=== PATIENT | male | born 1985 | race Caucasian/White ===

== ENCOUNTER 2016-11-22 08:07 | Inpatient (IN) | payer OTHER ==
[~2016-11-22] VITALS: Ht 165.1 cm; Wt 54.4 kg
[2016-11-22] MEDS ORDERED: TRAZ-144 PO (10:21)
[2016-11-22] MEDS ORDERED: SERT100T PO (10:21)
[2016-11-22] MEDS ORDERED: CLON0.5T PO (10:21)
[2016-11-22 10:38] VITALS: BP 151/93
[2016-11-22 11:08] LABS: *AMPHETAMINE, URINE NEGATIVE (NEGATIVE); *BARBITURATE, URINE NEGATIVE (NEGATIVE); *CANNABINOID, URINE NEGATIVE (NEGATIVE); *COCCAINE, URINE NEGATIVE (NEGATIVE); *OPIATE, URINE NEGATIVE (NEGATIVE); *PHENCYCLIDINE SCREEN,URINE NEGATIVE (NEGATIVE)
--- NOTE | 2016-11-22 11:30 | NUR ---
ADMISSION Admitted a 31 year old male from [facility]. Patient was assessed for pre admission at intake office at 1008, vital signs obtained: bp: 151/93, hr: 108, t: 97.8 r: 16, o2 sat: 99% room air. Patient noted with flushed face and hyperverbal, reporting he feels anxious. Patient provided with calming reassurance and non pharmacological intervention with relief. Patient provided urine for admitting urine drug screen. Patient reports he is here to detox off of etoh/Roxicodone/ Klonopin. Patient arrived to [facility] at 1030. Patient oriented to unit and to room educated regarding call light use. Body search completed by male intake staff, no contraband found. Patients body assessment completed by staff nurse, patient skin is intact, no breakdown, bruising or discoloration noted, patient has multiple tattoos on chest and on bilateral arms. Patient is 5 feet 5 inches tall and weighs 120 lbs. Patient reports substance use of: 1. etoh- began drinking alcohol at the age of 17 for the past month has been drinking 750ml of whiskey daily, last drink 11/22/2016 in the morning consumed 750ml of whiskey. 2. Roxicodone- began using 3 years ago after a dental procedure for the past month has been snorting intranasally 3-4 pills of unknown amount last used 11/21/2016 in the morning unknown amount. 3. heroin- began using 3 years ago, per patient the last 3 years uses once every couple of months 1 gram intranasally, reports last used 2 weeks ago 1 gram. 4. Klonopin-began using at the age of 20, Per patient for the past 3 weeks he has been taking 3 pills of 0.5mg each daily for one week, last took 11/01/2016, per patient he had a prescription for it, but ran out of Klonopin. Patient with longest period of sobriety was for one month, July 2016. Reports treatment history of two treatment centers: [facility] for 30 days at the age of 23, and [facility] treatment in [place] for 2 weeks in July 2016. Reports he does not have a primary care physician, but does have a psychiatrist. Dr. Harmon in [place], [place] at [facility]. Patient reports allergies to penicillin. Patient reports he was diagnosed with depression at the age of 17 and ADHD at the age of 17. Takes the following home medications: Zoloft 100mg Po daily, trazodone 50mg Po QHSPRN, Klonopin 0.5mg PO daily. Patient denies any history of seizures. Reports family history of substance abuse: mother was a crack addict but has been sober for sometime now. Patient reports his father was an alcoholic Patient denies any history of seizures. Patient reports he attempted suicide at the age of 18 when he took a bunch of sleeping pills patient currently denies any thoughts/plan of SI. Dr. Orosco notified of new admission. Dr. Yates notified of new admission and will input orders. Patient currently in room, pupils are equal and reactive to light, 3mm. Patients abdomen is soft and non distended. Bowel sounds heard in all quadrants. Patients respirations are even and unlabored, lungs clear upon auscultation. Admitting cow score of: 5 and ciwa score of: 3, presenting with: difficulty sitting still, anxiety, heart rate of 108. Safety measures in place. Call light kept with in reach. Will continue to monitor closely.
[2016-11-22 13:02] VITALS: BP 122/85
[2016-11-22] MEDS ORDERED: MAG HYDROX/AL HYDROX/SIMETH 30 ML LIQUID UDC PO PRN (15:00)
[2016-11-22] MEDS ORDERED: diphenhydrAMINE 50 MG CAPSULE PO PRN (15:00)
[2016-11-22] MEDS ORDERED: ONDANSETRON ODT 4 MG TAB.RAPDIS SL PRN (15:00)
[2016-11-22] MEDS ORDERED: LORAZEPAM 2 MG/1 ML VIAL IM PRN (15:00)
[2016-11-22] MEDS ORDERED: LOPERAMIDE HCL 2 MG CAPSULE PO PRN ×2 (15:00)
[2016-11-22] MEDS ORDERED: MIRALAX 17 GM POWD.PACK PO PRN (15:00)
[2016-11-22] MEDS ORDERED: THIAMINE HCL 200 MG/2 ML VIAL IM ONE (15:00)
[2016-11-22] MEDS ORDERED: ONDANSETRON 4 MG/2 ML VIAL IM PRN (15:00)
[2016-11-22] MEDS ORDERED: LORAZEPAM 1 MG TABLET PO PRN (15:00)
[2016-11-22] MEDS ORDERED: CLONIDINE HCL 0.1 MG TABLET PO PRN (15:00)
[2016-11-22] MEDS ORDERED: DICYCLOMINE HCL 20 MG TABLET PO PRN (15:00)
[2016-11-22] MEDS ORDERED: BUPRENORPHINE HCL 2 MG TAB.SUBL SL PRN (15:00)
[2016-11-22] MEDS ORDERED: ACETAMINOPHEN 325 MG TABLET PO PRN (15:00)
[2016-11-22] MEDS: GABAPENTIN 300 MG CAPSULE PO SCH ×2 (15:36→21:08)
[2016-11-22] MEDS: BUPRENORPHINE HCL 2 MG TAB.SUBL SL SCH ×2 (15:36→21:09)
[2016-11-22] MEDS: LORAZEPAM 1 MG TABLET PO PRN ×2 (15:44→17:14)
--- NOTE | 2016-11-22 15:44 | NUR ---
PRN ATIVAN Patient presenting with: moderate headache, anxiety, observable moist, and fine tremors with ciwa score of: 13, as per MD orders patient was administered 1 mg Ativan Po as ordered, will monitor effectiveness of medication.
--- NOTE | 2016-11-22 16:36 | NUR ---
MD COMMUNICATION/ATIVAN CLARIFICATION Patient with new orders to begin Ativan taper, first dose to be administered at 1700 d/t patient received 1 mg Ativan Po at 1544 per MD orders hold first dose of taper Ativan 2 mg Po and administer an additional 1mg Ativan Po dose. Verified and read back to MD, will administer as ordered. will continue to monitor closely.
--- NOTE | 2016-11-22 16:44 | NUR ---
ATIVAN REASSESSMENT Patient continues to present with: presenting with: mild headache, anxiety, observable moist, and fine tremors with ciwa score of: 11, will administer an additional 1 mg Po Ativan dose as per Dr. Yates and will hold first dose of taper (Ativan 2 mg Po) as per Dr. Yates, will continue to monitor closely.
[2016-11-22] MEDS: LORAZEPAM 1 MG TABLET PO SCH ×2 (17:00→21:08)
[2016-11-22 17:30] VITALS: BP 137/99
--- NOTE | 2016-11-22 19:00 | NUR ---
END OF SHIFT Patient alert and oriented x4, patient compliant with therapeutic plan of care, was started on a 5 day Ativan and 5 day Subutex taper. Administered Subutex and Ativan during shift, as ordered by Dr. Yates, well tolerated, no ASE noted. Encouraged adequate PO fluid intake as tolerated. Patient encouraged to attend group therapies/sessions to learn new coping skills to prevent relapse. vital signs stable. Patient endorsed to research program intern nurse, all pertinent information discussed with patient.
--- NOTE | 2016-11-22 19:30 | NUR ---
START OF SHIFT-- Pt is a 31 y/o male admitted today for ETOH/OPIATE /BENZO dependency. Allergic to PCN, on regular diet, full code status.He is A/O X 4.PMH of ADHD and depression.Pt has been seen by MD and started on 5 day dual taper of Ativan and Subutex,well tolerated; NO A/R reported by day shift nurse.Skin is intact. Encouraged adequate PO fluid intake as tolerated. Patient encouraged to attend group therapies/sessions ; vital signs stable,bed locked in lowest position,side rails up x 2,call light within reach. Patient received in a stable condition;will be monitored for safety.
[2016-11-22 20:00] VITALS: BP 140/93
[2016-11-22] MEDS ORDERED: LORAZEPAM 1 MG TABLET PO SCH (21:00)
[2016-11-22] MEDS ORDERED: QUETIAPINE FUMARATE 25 MG TABLET PO SCH (21:00)
[2016-11-22 21:49] LABS: ALBUMIN 3.9 g/dL (3.4-5.0); BILIRUBIN,TOTAL 0.4 mg/dL (0.2-1.0); CALCIUM 9.5 mg/dL (8.5-10.1); CREATININE 0.9 mg/dL (0.6-1.3); MAGNESIUM 1.8 mg/dL (1.8-2.4); POTASSIUM 3.7 mmol/L (3.5-5.1); TOTAL PROTEIN, SERUM 7.8 g/dL (6.4-8.2)
[2016-11-22 21:58] LABS: BASOPHILS # (AUTO) 0.1 K/uL (0.0-8.0); BASOPHILS % (AUTO) 0.4 % (0.0-2.0); EOSINOPHILS % (AUTO) 0.3 % (0.0-7.0); HEMATOCRIT 48.2 % (36.7-47.1); HEMOGLOBIN 16.9 g/dL (12.5-16.3); LYMPHOCYTES # (AUTO) 2.6 K/uL (20.0-40.0); LYMPHOCYTES % (AUTO) 16.9 % (20.5-51.5); MEAN CORPUSCULAR HEMOGLOBIN 31.8 uug (23.8-33.4); MEAN CORPUSCULAR HGB CONC 35 g/dL (32.5-36.3); MEAN CORPUSCULAR VOLUME 90.7 fL (73.0-96.2); MONOCYTES # (AUTO) 0.8 K/uL (2.0-10.0); MONOCYTES % (AUTO) 5.3 % (0.0-11.0); NEUTROPHILS # (AUTO) 12.1 K/uL (1.8-8.9); NEUTROPHILS % (AUTO) 77.1 % (38.5-71.5); PLATELET COUNT (AUTO) 266 K/uL (152-348); RED BLOOD CELL COUNT(AUTO) 5.32 MIL/uL (4.06-5.63); RED CELL DISTRIBUTION WIDTH 12.3 % (12.1-16.2); WHITE BLOOD COUNT (AUTO) 15.6 K/uL (3.6-10.2)
--- NOTE | 2016-11-22 22:00 | NUR ---
REJI Faulkner, Robaxin, and Milk of Magnesia reassessment Pt reports relief of headache and body aches. He has not had a BM yet. Addendum: 11/24/16 at 0242 by TERRI MONROE RN Incorrect date of note.
[2016-11-22 22:02] LABS: THYROID STIMULATING HORMONE 1.239 mIU/mL (0.358-3.740)
[2016-11-22 22:07] LABS: HIV-1 p24 ANTIGEN NON REACTIVE (NONREACTIVE); HIV-1/2 ANTIBODY NON REACTIVE (NONREACTIVE)
[2016-11-23] VITALS (8 sets, daily range): BP systolic 142–172; BP diastolic 92–120
--- NOTE | 2016-11-23 06:44 | NUR ---
END OF SHIFT-- Pt is a 31 y/o male admitted for ETOH/OPIATE /BENZO dependency. Allergic to PCN, on regular diet, full code status.He is A/O X 4.PMH of ADHD and depression.Pt has been seen by MD and started on 5 day dual taper of Ativan and Subutex,well tolerated; NO A/R reported by day shift nurse.Skin is intact. Encouraged adequate PO fluid intake as tolerated. vital signs stable,bed locked in lowest position,side rails up x 2,call light within reach.No PRN meds given last night;Pt slept 7 hrs,fluid intake was 1021 mls,voided x 3. Patient is in a stable condition;will endorse care to day shift.
[2016-11-23] MEDS ORDERED: SERTRALINE HCL 100 MG TABLET PO SCH (09:00)
[2016-11-23] MEDS ORDERED: TUBERCULIN,PURIF.PROT.DERIV. 5 TU/0.1 ML TEST ID ONE (09:00)
[2016-11-23] MEDS: LORAZEPAM 1 MG TABLET PO SCH ×4 (09:02→20:47)
[2016-11-23] MEDS: BUPRENORPHINE HCL 2 MG TAB.SUBL SL SCH ×4 (09:02→20:48)
[2016-11-23] MEDS: MULTIVITAMINS,THERAPEUTIC TABLET PO SCH (09:02)
[2016-11-23] MEDS: METHOCARBAMOL 750 MG TABLET PO PRN ×2 (09:02→20:48)
[2016-11-23] MEDS: FOLIC ACID 1 MG TABLET PO SCH (09:02)
[2016-11-23] MEDS: THIAMINE HCL 100 MG TABLET PO SCH (09:02)
[2016-11-23] MEDS: GABAPENTIN 300 MG CAPSULE PO SCH ×2 (09:02→14:28)
--- NOTE | 2016-11-23 09:02 | NUR ---
PRN Robaxin 750mg Client reports generalized muscle pain 8/10, manifested by irritability and change in vitals. Robaxin 750mg PO administered. Call light within reach.
--- NOTE | 2016-11-23 09:07 | NUR ---
TB TEST TO L F/A Client tolerated well.
--- NOTE | 2016-11-23 10:02 | NUR ---
Reassessment PRN Robaxin 750mg Client reports relief from generalized muscle pain 2/10, but tolerable.
--- NOTE | 2016-11-23 19:00 | NUR ---
END OF SHIFT: Client continues on 5 day Subutex/ 5 day Ativan taper, for management of his withdrawal symptoms. He is in room, A/O X4, reports anxiety, chills, and fatigue, he denies any N/V/D. Last COWS 10/ CIWA 10. He is compliant with group therapy. Adequate intake 1460mL void x 3, stool x 1. Client is on seizure precautions. Side rails X 2 up/padded, call light within reach, bed locked in lowest positions. Endorsed to incoming nurse
--- NOTE | 2016-11-23 20:00 | NUR ---
START OF SHIFT Received report from day shift nurse. Pt attended a group meeting and returned to his room after. He is a 31 yo male admitted to [facility] on 11/22 for ETOH, BZD, and opiate dependence. He is A&O x4 and ambulatory. Allergic to PCNs, full code status, and on a regular diet. He has a past history of depression. On admission he admitted to using ETOH 750mL per day for the past month, klonopin 1.5mg per day for the past 3 weeks, heroin 1 gram once every couple of months for 3 years, roxycodone 3-4 tabs per day for the past month. He started a 5 day Ativan and 5 day Subutex taper today. Pt is noted with observable tremors, runny nose, and goose bumps. He reports anxiety and headache. Tapers due tonight. Fall and seizure precautions in place. Bed is down with call light in reach.
[2016-11-23] MEDS: QUETIAPINE FUMARATE 100 MG TABLET PO SCH (20:48)
[2016-11-23] MEDS: IBUPROFEN 600 MG TABLET PO PRN (20:48)
--- NOTE | 2016-11-23 20:50 | NUR ---
PRN Motrin, Robaxin, and Milk of Magnesia administration Pt c/o generalized body aches, headache, and one BM over the past two weeks. He also reports poor appetite prior to admission. Pt states, "I've gone to the bathroom one time in the past week and it was watery". PRN Motrin, Robaxin, and Milk of Magnesia administered.
[2016-11-23] MEDS: MAGNESIUM HYDROXIDE 30 ML LIQUID UDC PO PRN (20:51)
[2016-11-23] MEDS ORDERED: QUETIAPINE FUMARATE 25 MG TABLET PO SCH (21:00)
[2016-11-23] MEDS ORDERED: GABAPENTIN 300 MG CAPSULE PO SCH (21:00)
--- NOTE | 2016-11-23 22:00 | NUR ---
PRN Motrin, Robaxin, and Milk of Magnesia reassessment Pt reports relief of headache and body aches. He has not had a BM yet.
--- NOTE | 2016-11-23 22:22 | NUR ---
PRN Clonidine administration Pt is anxious and agitated. He is upset to find out that his laundry will not be available today. He has moderate tremors and is unable to sit still in bed. B/P 172/120 and HR 137. PRN Clonidine administered.
--- NOTE | 2016-11-23 23:30 | NUR ---
PRN Clonidine reassessment PRN Clonidine somewhat effective. Pt is less anxious and agitated. He is moving around less frequently. He is no longer upset about his laundry. B/P 157/110 and HR 133. Pt has been frequently smoking throughout the night. He was educated regarding refraining from smoking while B/P and HR are elevated. Pt insists on continuing to smoke. Safety measures in place.
--- NOTE | 2016-11-23 23:45 | NUR ---
ECG, One time Ativan, and One time Coreg orders Contacted Dr. Yates to reports that pts B/P is 157/110 and HR 133 after Clonidine administration. Pt has become mildly confused. He is looking in his jacket for his passport and cell phone. Pt is able to be redirected. He is A&O x3. Orders received for ECG, One time Ativan, and One time Coreg. Addendum: 11/24/16 at 0316 by TERRI MONROE RN CARMEN Arceo and SALVADOR 13
[2016-11-24] VITALS (7 sets, daily range): BP systolic 108–146; BP diastolic 77–108
[2016-11-24] MEDS ORDERED: LORAZEPAM 1 MG TABLET PO ONE
[2016-11-24] MEDS ORDERED: CARVEDILOL 12.5 MG TABLET PO ONE
--- NOTE | 2016-11-24 01:25 | NUR ---
One time Ativan and one time Coreg reassessment Ativan and Coreg somewhat effective. Pt's B/P is 146/108 and HR 130. He is unable to relax in bed for longer than a half an hour and reports, "my mind keeps spinning". Pt is up to smoke and have snacks. He continues to have some mild confusion and needs frequent reminding. He asks again about his cell phone which has already been explained. Encouraged pt to relax in bed. Safety measures in place. Addendum: 11/24/16 at 0404 by TERRI MONROE RN CARMEN Flynn and SALVADOR 9
--- NOTE | 2016-11-24 03:00 | NUR ---
Nursing Note Pt is lying in bed resting comfortably with eyes closed. Respirations even and unlabored. B/P 108/77, HR 86, RR 18, O2 sat 98%. Safety measures in place
--- NOTE | 2016-11-24 07:27 | NUR ---
END OF SHIFT Report provided to day shift nurse. Pt is lying in bed resting. He is a 31 yo male admitted to [facility] on 11/22 for ETOH, BZD, and opiate dependence. He is A&O x3 and ambulatory. Allergic to PCNs, full code status, and on a regular diet. He has a past history of depression. On admission he admitted to using ETOH 750mL per day for the past month, klonopin 1.5mg per day for the past 3 weeks, heroin 1 gram once every couple of months for 3 years, roxycodone 3-4 tabs per day for the past month. Pt started a 5 day Ativan and 5 day Subutex taper on 11/23. Pt was hypertensive, with tachycardia, periods of mild confusion, and tremors. PRN Robaxin, Motrin, MOM, Clonidine, one time Ativan, and one time Coreg administered. ECG completed per orders. Last B/P stable. He drank 2610mL and slept for 4 hours. Last COWS 4 and CIWA 5. Fall and seizure precautions in place. Bed is down with call light in reach.
--- NOTE | 2016-11-24 07:30 | NUR ---
Start Of Shift Received report from shift supervisor melting nurse. Patient alert and oriented x4, patient compliant with therapeutic plan of care, was started on a 5 day Ativan and 5 day Subutex taper. Pt full code regular diet continues on fall and seizure precautions is allergic to PCN. Encouraged adequate PO fluid intake as tolerated. Pt reported feeling tired stating that he had difficulty sleeping last night and was waking up through the night. Pt slept a total of 4 hours last night. Pt presented with mild anxiety, stuffy nose, and sweats. Last CIWA 5 and COWS 4. Pt received PRN Robaxin, MOM, Motrin, Clonide as well as onetime orders of Ativan 1mg and Coreg. Medications were effective per shift supervisor melting nurse. All safety measures in place, call light within reach, will continue to monitor and provide care.
[2016-11-24 08:01] LABS: ALBUMIN 3.4 g/dL (3.4-5.0); BILIRUBIN,DIRECT 0.1 mg/dL (0.0-0.2); BILIRUBIN,TOTAL 0.5 mg/dL (0.2-1.0); CALCIUM 9.3 mg/dL (8.5-10.1); CREATININE 0.8 mg/dL (0.6-1.3); MAGNESIUM 2.2 mg/dL (1.8-2.4); PHOSPHOROUS 4.9 mg/dL (2.5-4.9); POTASSIUM 4.2 mmol/L (3.5-5.1); TOTAL PROTEIN, SERUM 6.8 g/dL (6.4-8.2)
[2016-11-24 08:14] LABS: BASOPHILS # (AUTO) 0.1 K/uL (0.0-8.0); BASOPHILS % (AUTO) 0.7 % (0.0-2.0); EOSINOPHILS # (AUTO) 0.3 K/uL (0.0-0.7); EOSINOPHILS % (AUTO) 3.9 % (0.0-7.0); HEMATOCRIT 46.8 % (36.7-47.1); HEMOGLOBIN 15.8 g/dL (12.5-16.3); LYMPHOCYTES # (AUTO) 3.2 K/uL (20.0-40.0); LYMPHOCYTES % (AUTO) 39.8 % (20.5-51.5); MEAN CORPUSCULAR HEMOGLOBIN 30.7 uug (23.8-33.4); MEAN CORPUSCULAR HGB CONC 34 g/dL (32.5-36.3); MEAN CORPUSCULAR VOLUME 90.7 fL (73.0-96.2); MONOCYTES # (AUTO) 0.8 K/uL (2.0-10.0); MONOCYTES % (AUTO) 9.6 % (0.0-11.0); NEUTROPHILS # (AUTO) 3.6 K/uL (1.8-8.9); PLATELET COUNT (AUTO) 219 K/uL (152-348); RED BLOOD CELL COUNT(AUTO) 5.16 MIL/uL (4.06-5.63); RED CELL DISTRIBUTION WIDTH 11.8 % (12.1-16.2)
[2016-11-24] MEDS: THIAMINE HCL 100 MG TABLET PO SCH (08:54)
[2016-11-24] MEDS: GABAPENTIN 300 MG CAPSULE PO SCH ×3 (08:54→21:26)
[2016-11-24] MEDS: SERTRALINE HCL 100 MG TABLET PO SCH (08:54)
[2016-11-24] MEDS: FOLIC ACID 1 MG TABLET PO SCH (08:54)
[2016-11-24] MEDS: LORAZEPAM 1 MG TABLET PO SCH ×3 (08:54→21:26)
[2016-11-24] MEDS: MULTIVITAMINS,THERAPEUTIC TABLET PO SCH (08:54)
[2016-11-24] MEDS: BUPRENORPHINE HCL 2 MG TAB.SUBL SL SCH ×3 (08:55→21:27)
[2016-11-24] MEDS ORDERED: QUETIAPINE FUMARATE 100 MG TABLET PO SCH (09:00)
[2016-11-24 09:35] LABS: *AMPHETAMINE, URINE NEGATIVE (NEGATIVE); *BARBITURATE, URINE NEGATIVE (NEGATIVE); *CANNABINOID, URINE NEGATIVE (NEGATIVE); *COCCAINE, URINE NEGATIVE (NEGATIVE); *OPIATE, URINE NEGATIVE (NEGATIVE); *PHENCYCLIDINE SCREEN,URINE NEGATIVE (NEGATIVE)
--- NOTE | 2016-11-24 19:14 | NUR ---
End Of Shift Report given to desktop administrator. Patient alert and oriented x4, patient compliant with therapeutic plan of care, was started on a 5 day Ativan and 5 day Subutex taper. Pt full code regular diet continues on fall and seizure precautions is allergic to PCN. Patient encouraged adequate PO fluid intake as tolerated. Upon assessment patient presented with dilated pupils mild anxiety, tremors, mild anxiety and barely sweating with his last CIWA score of: 3 and last COWS 4 @1600. Detox medication effective at reducing withdrawal symptoms. Patient encouraged to attend group therapies/sessions to learn new coping skills to recent relapse, noted attending and participating, patient denies SI/HI. Pt ate all of his meals his total fluid intake was 1750ml with 2 void and 0 bowel movement ,no PRN medications were administered during shift. Safety measures in place. Call light kept within reach. Patient endorsed to desktop administrator nurse, all pertinent information discussed.
--- NOTE | 2016-11-24 19:50 | NUR ---
START OF SHIFT Received report from day shift nurse. Pt is lying in bed resting. Respirations even and unlabored. He is easily arousable to verbal stimulation. He is a 31 yo male admitted to [facility] on 11/22 for ETOH, BZD, and opiate dependence. He is A&O x4 and ambulatory. Pt is allergic to PCNs, is full code status, and on a regular diet. He has a past history of depression. On admission he admitted to using ETOH 750mL per day for the past month, klonopin 1.5mg per day for the past 3 weeks, heroin 1 gram once every couple of months for 3 years, roxycodone 3-4 tabs per day for the past month. He started a 5 day Ativan and 5 day Subutex taper on 11/23. Pt reports body aches, chills, and has moist skin . Tapers due tonight. Fall and seizure precautions in place. Bed is down with call light in reach.
[2016-11-24] MEDS: QUETIAPINE FUMARATE 100 MG TABLET PO SCH (21:00)
[2016-11-24] MEDS: CLONIDINE HCL 0.1 MG TABLET PO SCH (21:26)
[2016-11-24] MEDS: METHOCARBAMOL 750 MG TABLET PO PRN (21:27)
--- NOTE | 2016-11-24 21:28 | NUR ---
PRN Robaxin administration Pt c/o generalized body aches 01/03. PRN Robaxin administered.
--- NOTE | 2016-11-24 22:30 | NUR ---
PRN Robaxin reassessment PRN Robaxin effective. Pt reports relief of body aches.
[2016-11-25] VITALS: BP 134/101
[2016-11-25 04:45] VITALS: BP 131/102
[2016-11-25 05:55] LABS: HCV AB <0.1 s/co ratio (0.0-0.9); HEPATITIS B CORE AB, IgM Negative (Negative); HEPATITIS B SURFACE AG Negative (Negative)
--- NOTE | 2016-11-25 07:00 | NUR ---
Start of Shift Report from night nurse: Pt is a 31 y/o male here for Etoh r/t whiskey/d, Benzo r/t Klonopin 1.5mg PO 3x/wk, Opiates r/t Heroin 1g "a couple times per month" and oxycodone 1-4 pills with unknown doses once per month; 5 day Subutex and 5 day Ativan tapers ordered. Pt is a full code, regular diet, allergic to PCN, fall and seizure precautions order. HHx: ADHD, depression and multiple relapse. V/S unstable with last BP 134/102 at 0400 after PRN Clonidine given and night nurse recommended to f/u with the MD re: HTN. Endorsed to me to f/u re: constipations with the MD. PRN Robaxin given and nurse held the ordered Seroquel for sleep since the pt was asleep in bed. Last COWS 2 CIWA 2. Pt is asleep in room. Will cont. to monitor the pt.
--- NOTE | 2016-11-25 07:15 | NUR ---
END OF SHIFT Report provided to day shift nurse. Pt is lying in bed resting. He is a 31 yo male admitted to [facility] on 11/22 for ETOH, BZD, and opiate dependence. He is A&O x4 and ambulatory. Pt is allergic to PCNs, is full code status, and on a regular diet. He has a past history of depression. On admission he admitted to using ETOH 750mL per day for the past month, klonopin 1.5mg per day for the past 3 weeks, heroin 1 gram once every couple of months for 3 years, roxycodone 3-4 tabs per day for the past month. He started a 5 day Ativan and 5 day Subutex taper on 11/23. Last COWS 2 and CIWA 2. PRN Robaxin administered. He drank 500mL and slept for 6 hours. Bed is down with call light in reach.
[2016-11-25 08:00] VITALS: BP 138/94
[2016-11-25] MEDS: LORAZEPAM 1 MG TABLET PO SCH ×4 (08:44→21:39)
[2016-11-25] MEDS: THIAMINE HCL 100 MG TABLET PO SCH (08:45)
[2016-11-25] MEDS: GABAPENTIN 300 MG CAPSULE PO SCH ×2 (08:46→15:16)
[2016-11-25] MEDS: CLONIDINE HCL 0.1 MG TABLET PO SCH ×2 (08:46→15:16)
[2016-11-25] MEDS: SERTRALINE HCL 100 MG TABLET PO SCH (08:46)
[2016-11-25] MEDS: FOLIC ACID 1 MG TABLET PO SCH (08:46)
[2016-11-25] MEDS: MULTIVITAMINS,THERAPEUTIC TABLET PO SCH (08:46)
[2016-11-25] MEDS ORDERED: BUPRENORPHINE HCL 2 MG TAB.SUBL SL SCH (09:00)
[2016-11-25 12:00] VITALS: BP 136/102
--- NOTE | 2016-11-25 13:00 | NUR ---
PRN Medication Administration Pt c/o no BM in more than 3 days; notified Dr. Yates and PRN Miralax given as ordered. Will cont. to monitor the pt.
[2016-11-25] MEDS: HYDROXYZINE PAMOATE 25 MG CAPSULE PO PRN (15:16)
[2016-11-25] MEDS: BUPRENORPHINE HCL 2 MG TAB.SUBL SL SCH ×2 (15:17→21:41)
--- NOTE | 2016-11-25 15:20 | NUR ---
PRN Medication Administration Pt is in room anxious with restless legs and c/o muscle tension; PRN Vistaril 25mg and Robaxin 750mg given as ordered. Will reassess in 1H. Will cont. to monitor the pt.
[2016-11-25] MEDS: METHOCARBAMOL 750 MG TABLET PO PRN (15:22)
[2016-11-25 16:00] VITALS: BP 143/89
--- NOTE | 2016-11-25 16:30 | NUR ---
Reassessment, New Orders Pt is in hallway socializing with no non-verbal cues of anxiety present and pt denies muscle tension; Vistaril and Robaxin are effective. New Orders for Modified gabapentin neuropathic pain and Clonidine for anxiety with s/sx of elevated BP. Will cont. to monitor the pt. Addendum: 11/25/16 at 1746 by JHOANA SALAMANCA RN New orders for Vitamin D 2000 Units daily r/t Vit. D deficiency.
--- NOTE | 2016-11-25 18:40 | NUR ---
End of Shift Report to night nurse: Pt is a 31 y/o male here for Etoh r/t whiskey/d, Benzo r/t Klonopin 1.5mg PO 3x a wk, Opiates r/t Heroin 1g "a couple times per month" and oxycodone 1-4 pills with unknown doses once per month; 5 day Subutex and 5 day Ativan tapers ordered. Pt is a full code, regular diet, allergic to PCN, fall and seizure precautions order. HHx: ADHD, depression and multiple relapse. V/S still unstable so new orders for Clonidine 0.2mg bid and gabapentin 900mg tid to start tonight 2100H. PRN Vistaril 25mg given PRN Robaxin 750mg given 1500H. Pt denies chest pain, no SOB noted. No hallucinations, delusions or suicidal ideations noted. Pt attended group therapy & activities during my shift. Last COWS 5 CIWA 5.
[2016-11-25 20:00] VITALS: BP 133/90
--- NOTE | 2016-11-25 20:05 | NUR ---
START OF SHIFT Received report from day shift nurse. Pt attended a group meeting and returned to his room after. He is a 31 yo male admitted to [facility] on 11/22 for ETOH, BZD, and opiate dependence. He is A&O x4 and ambulatory. Allergies to PCNs, is full code status, and on a regular diet. He has a past history of depression. On admission he admitted to using ETOH 750mL per day for the past month, klonopin 1.5mg per day for the past 3 weeks, heroin 1 gram once every couple of months for 3 years, roxycodone 3-4 tabs per day for the past month. He started a 5 day Ativan and 5 day Subutex taper on 11/23. Pt reports chills, anxiety, and tremors that can be felt . Tapers due tonight. Fall and seizure precautions in place. Bed is down with call light in reach.
[2016-11-25] MEDS ORDERED: GABAPENTIN 300 MG CAPSULE PO SCH (21:00)
[2016-11-25] MEDS ORDERED: CLONIDINE HCL 0.1 MG TABLET PO SCH (21:00)
--- NOTE | 2016-11-25 21:22 | NUR ---
PRN Milk of Magnesia Pt reports no BM since prior to admission. PRN MOM administered.
[2016-11-25] MEDS: CLONIDINE HCL 0.2 MG TABLET PO SCH (21:40)
[2016-11-25] MEDS: QUETIAPINE FUMARATE 100 MG TABLET PO SCH (21:40)
[2016-11-25] MEDS: MAGNESIUM HYDROXIDE 30 ML LIQUID UDC PO PRN (21:41)
[2016-11-26] VITALS: BP 120/81
--- NOTE | 2016-11-26 01:30 | NUR ---
Nursing Note Pt is observed in his room folding clothes. He appears tired with slurred speech and has spilled food on the floor. He seems mildly confused and is asking where his wallet is. Pt appears to be fighting sleep. Encouraged pt. to lie down in bed. He complies and falls asleep.
[2016-11-26 04:45] VITALS: BP 130/69
--- NOTE | 2016-11-26 07:10 | NUR ---
Start of Shift Report from night nurse: Pt is a 31 y/o male here for Etoh r/t whiskey/d, Benzo r/t Klonopin 1.5mg PO 3x/wk, Opiates r/t Heroin 1g "a couple times per month" and oxycodone 1-4 pills with unknown doses once per month; 5 day Subutex and 5 day Ativan tapers ordered. Pt is a full code, regular diet, allergic to PCN, fall and seizure precautions order. HHx: Bipolar,ADHD, depression and multiple relapse. V/S stable with controlled BP stable yet HR 102. PRN Seroquel given last night for sleep which caused the pt to be confused and disoriented with Dr. Yates notified and endorsed to notify the psychiatrist. PRN MOM given since no BM in more than 3 days. Last COWS 3 CIWA 2. Pt is asleep in room. Will cont. to monitor the pt.
--- NOTE | 2016-11-26 07:10 | NUR ---
END OF SHIFT Report provided to day shift nurse. Pt is in his room getting ready for the day. He is a 31 yo male admitted to [facility] on 11/22 for ETOH, BZD, and opiate dependence. He is A&O x4 and ambulatory. Allergies to PCNs, is full code status, and on a regular diet. He has a past history of depression. On admission he admitted to using ETOH 750mL per day for the past month, klonopin 1.5mg per day for the past 3 weeks, heroin 1 gram once every couple of months for 3 years, roxycodone 3-4 tabs per day for the past month. He started a 5 day Ativan and 5 day Subutex taper on 11/23. Pt became mildly confused and was fighting sleep before bed. He was encouraged to get in bed and he fell asleep. Pt woke up A&O x4. PRN MOM administered before bed. No BM reported yet. Last COWS 3 and CIWA 2. He drank 2000mL and slept for 5 hours. No BM reported yet. Fall and seizure precautions in place. Bed is down with call light in reach.
[2016-11-26 08:00] VITALS: BP 113/89
[2016-11-26] MEDS: GABAPENTIN 300 MG CAPSULE PO SCH ×3 (09:22→21:36)
[2016-11-26] MEDS: CHOLECALCIFEROL 1,000 UNIT TABLET PO SCH (09:22)
[2016-11-26] MEDS: LORAZEPAM 1 MG TABLET PO SCH ×3 (09:22→21:34)
[2016-11-26] MEDS: SERTRALINE HCL 100 MG TABLET PO SCH (09:23)
[2016-11-26] MEDS: THIAMINE HCL 100 MG TABLET PO SCH (09:23)
[2016-11-26] MEDS: CLONIDINE HCL 0.1 MG TABLET PO SCH ×2 (09:23→15:14)
[2016-11-26] MEDS: MULTIVITAMINS,THERAPEUTIC TABLET PO SCH (09:23)
[2016-11-26] MEDS: BUPRENORPHINE HCL 2 MG TAB.SUBL SL SCH ×3 (09:23→21:37)
[2016-11-26] MEDS: FOLIC ACID 1 MG TABLET PO SCH (09:23)
[2016-11-26 12:00] VITALS: BP 132/88
[2016-11-26 16:00] VITALS: BP 138/98
--- NOTE | 2016-11-26 19:30 | NUR ---
End of Shift Report to night nurse: Pt is a 31 y/o male here for Etoh r/t whiskey/d, Benzo r/t Klonopin 1.5mg PO 3x a wk, Opiates r/t Heroin 1g "a couple times per month" and oxycodone 1-4 pills with unknown doses once per month; 5 day Subutex and 5 day Ativan tapers ordered. Pt is a full code, regular diet, allergic to PCN, fall and seizure precautions order. HHx: ADHD, depression & multiple relapse. V/S stable. No PRN' s given during my shift. Pt denies chest pain, no SOB noted. No hallucinations, delusions or suicidal ideations noted. No new orders of labs during my shift. Pt attended group therapy & activities during my shift. Last COWS 3 CIWA 3.
[2016-11-26 20:00] VITALS: BP 135/101
--- NOTE | 2016-11-26 20:00 | NUR ---
1999 Patient received awake, alert and just returning from [facility] group in recreation room, to his room # [id number]. Gait is steady. Patient responds to nurse's greeting and introduction with a smile and, " I'm doing fine and how are you doing tonight?" Patient is oriented to person, place, day, date, time and his personal situation. Patient's color is tannish-pink and his skin is warm, very slightly moist and intact. Lung sounds are clear bilaterally and active bowel sounds are noted X 4 abdominal Quads, per auscultation. Patient states that he has been going to groups consistently, following his medication regimen as ordered, and eating his regular diet and taking fluids ad praneeth, with no gastric issues. Patient is denying any pain or other discomforts at this time and he voices no requests for anything. Vital signs are: 98.2-92-16 135/101, O2 Sat 97%, COWS 3, CIWA 3. Patient was admitted on 11/22/16 for Alcohol, Roxicodone, Heroin, and Klonopin withdrawal, and he was started on a 5-Day Subutex medication taper and a 5-Day Ativan medication taper, on 11/22/16, which he has been apparently tolerating well so far. Patient moves all his extremities fully WNL, though a bit slowly. Patient is friendly, cooperative and verbally appropriate when interacting with nurse, and he freely initiates general, friendly conversation with nurse. Bed is locked and in lowest position, bed rails are up X 2 and call light within patient's easy reach.
[2016-11-26] MEDS: CLONIDINE HCL 0.2 MG TABLET PO SCH (21:35)
[2016-11-26] MEDS: QUETIAPINE FUMARATE 100 MG TABLET PO SCH (21:36)
[2016-11-26] MEDS: HYDROXYZINE PAMOATE 25 MG CAPSULE PO PRN (21:43)
[2016-11-26] MEDS: IBUPROFEN 600 MG TABLET PO PRN (21:43)
--- NOTE | 2016-11-26 21:43 | NUR ---
PRN MEDICATIONS: Prn Motrin 600 mg p.o. given per c/o back pain, 6/10 pain scale and Prn Vistaril 25 mg p.o. given per c/o anxiety.
--- NOTE | 2016-11-26 22:43 | NUR ---
REASSESSMENT PRN MEDICATIONS: Patient is sleeping comfortably with eyes closed and respirations quiet, even and unlabored at 12.
[2016-11-27] VITALS: BP 129/99
--- NOTE | 2016-11-27 | NUR ---
Vital signs are: 98.1-88-14 129/99, O2 Sat 97%, COWS 2, CIWA 3
--- NOTE | 2016-11-27 04:00 | NUR ---
Patient refuses to be awakened for V/S to be done at this time.
--- NOTE | 2016-11-27 06:30 | NUR ---
0630 Patient had an uneventful night, sleeping a total of 7 hours. Total intake was 1,246 ml p.o. and he was up to the bathroom for 3 voids and 1 stools. Prn medications given noted separately per floor protocol. V/SS afebrile, COWS 2, CIWA 3. Patient is presently sleeping comfortably with eyes closed and deep, even respirations noted at 12. Patient is in stable condition at this time.
--- NOTE | 2016-11-27 07:30 | NUR ---
start of shift note: received pt from shift engineer nurse, pt is in stable condition no s/s of pain or discomfort. pt is admitted for ETOH/opiate/benzo withdrawal/dependence. will continue to monitor for A/R to taper medications. will continue to monitor pt for any changes and will continue to meet pts needs.
[2016-11-27] MEDS: GABAPENTIN 300 MG CAPSULE PO SCH ×3 (08:30→20:34)
[2016-11-27] MEDS: FOLIC ACID 1 MG TABLET PO SCH (08:30)
[2016-11-27] MEDS: MULTIVITAMINS,THERAPEUTIC TABLET PO SCH (08:31)
[2016-11-27] MEDS: SERTRALINE HCL 100 MG TABLET PO SCH (08:31)
[2016-11-27] MEDS: CHOLECALCIFEROL 1,000 UNIT TABLET PO SCH (08:31)
[2016-11-27] MEDS: THIAMINE HCL 100 MG TABLET PO SCH (08:31)
[2016-11-27] MEDS: CLONIDINE HCL 0.1 MG TABLET PO SCH ×2 (08:31→15:09)
[2016-11-27] MEDS ORDERED: BUPRENORPHINE HCL 2 MG TAB.SUBL SL SCH (09:00)
[2016-11-27] MEDS ORDERED: LORAZEPAM 1 MG TABLET PO SCH (09:00)
[2016-11-27 09:30] VITALS: BP 108/60
[2016-11-27] MEDS ORDERED: BENZOCAINE ORAL CARE 12 ML BOTTLE MM PRN (11:15)
[2016-11-27 13:00] VITALS: BP 121/94
[2016-11-27 14:40] LABS: *AMPHETAMINE, URINE NEGATIVE (NEGATIVE); *BARBITURATE, URINE NEGATIVE (NEGATIVE); *CANNABINOID, URINE NEGATIVE (NEGATIVE); *COCCAINE, URINE NEGATIVE (NEGATIVE); *OPIATE, URINE NEGATIVE (NEGATIVE); *PHENCYCLIDINE SCREEN,URINE NEGATIVE (NEGATIVE)
[2016-11-27] MEDS: HYDROXYZINE PAMOATE 25 MG CAPSULE PO PRN ×2 (15:09→21:38)
--- NOTE | 2016-11-27 15:09 | NUR ---
PRN ADMINISTRATION: pt verbalized anxiety, pt's heart rate 99. pt is sweating and flushed. administered 25mg vistaril will re-assess pt
[2016-11-27] MEDS ORDERED: QUET100T PO (15:26)
[2016-11-27] MEDS ORDERED: CLON0.1T14 PO (15:26)
[2016-11-27] MEDS ORDERED: DICY20TA28 PO (15:26)
[2016-11-27] MEDS ORDERED: HYDR-3895 PO (15:26)
[2016-11-27] MEDS ORDERED: Ibuprofen PO (15:26)
[2016-11-27] MEDS ORDERED: CHOL10002 PO (15:26)
[2016-11-27] MEDS ORDERED: Sertraline Hcl PO (15:26)
[2016-11-27] MEDS ORDERED: METH-33 PO (15:26)
[2016-11-27] MEDS ORDERED: CLON0.2T12 PO (15:26)
[2016-11-27] MEDS ORDERED: Gabapentin PO (15:26)
--- NOTE | 2016-11-27 15:45 | NUR ---
re-assessment: pt verbalized vistaril effective, pt at this time is in bed resting pulse is at 88
[2016-11-27 17:47] VITALS: BP 121/77
--- NOTE | 2016-11-27 19:14 | NUR ---
discharge note: pt is in stable condition no s/s of pain or discomfort, pt is admitted to [facility] for opiate/benzo/etoh withdrawal/dependence. pt is set to discharge tomorrow. pt tolerated taper medications well with no A/R noted. last cows 2 and last ciwa 1. will continue to monitor patient for any changes and continue to meet pts needs. will endorse pt to shift mgr nurse
[2016-11-27 20:00] VITALS: BP 117/71
--- NOTE | 2016-11-27 20:00 | NUR ---
2000 Patient received awake, alert and fully oriented. Patient states that he is looking forward to being discharged tomorrow, though he admits to feeling a little anxious about how things will go for him after his [facility] discharge. Vital signs are: 98.7-86-18 117/71 O2 Sat %, COWS 3, CIWA 3. Patient denies any pain or other discomforts at this time. Patient states that he is overall "feeling fine" and he continues to go to all [facility] groups, be compliant with his medication regimen and treatment plan and take his regular diet with fluids ad praneeth. Patient was admitted on 11/22/16 for : Alcohol, Roxicodone, Heroin, Klonopin withdrawal and his 5-Day medication tapers ( subutex and ativan) have been completed at this time. Patient voices no requests for anything. Bed is locked and in lowest position, bed rails are up X 1 and call light within patient's easy reach.
[2016-11-27] MEDS: CLONIDINE HCL 0.2 MG TABLET PO SCH (20:33)
[2016-11-27] MEDS: QUETIAPINE FUMARATE 100 MG TABLET PO SCH (20:34)
[2016-11-27] MEDS: IBUPROFEN 600 MG TABLET PO PRN (21:38)
[2016-11-28] VITALS: BP 111/65
--- NOTE | 2016-11-28 04:00 | NUR ---
Patient refuses to be awakened for V/S to be done at this time.
--- NOTE | 2016-11-28 06:30 | NUR ---
0630 Patient slept a total of 7 hours and he had 1,460 ml p.o. total intake and he was up to the bathroom for 2 voids and no stools. V/SS afebrile, CIWA 3, COWS 3. Patient is presently resting comfortably in stable condition with eyes closed and respirations even, unlabored at 12.
--- NOTE | 2016-11-28 07:30 | NUR ---
Start of shift note; Received report from night nurse. Patient is AOX4. Patient is a 31 year old male admitted on 11/22/16 for ETOH/Opiate dependence. Patient was placed on a 5 Day Subutex and 5 Ativan taper completed taper without any adverse reactions. Patient reported history of ADHD, Depression, bipolar disorder. Patient noted to be allergic to Penicillin. On full code status and on a regular diet. Patient is medically cleared for discharge. All safety measures secured. Will continue to monitor patient.
[2016-11-28 08:00] VITALS: BP 110/70
[2016-11-28] MEDS: MULTIVITAMINS,THERAPEUTIC TABLET PO SCH (08:01)
[2016-11-28] MEDS: THIAMINE HCL 100 MG TABLET PO SCH (08:01)
[2016-11-28] MEDS: CHOLECALCIFEROL 1,000 UNIT TABLET PO SCH (08:01)
[2016-11-28] MEDS: FOLIC ACID 1 MG TABLET PO SCH (08:01)
[2016-11-28] MEDS: GABAPENTIN 300 MG CAPSULE PO SCH (08:01)
[2016-11-28 08:02] VITALS: BP 110/70
[2016-11-28] MEDS: SERTRALINE HCL 100 MG TABLET PO SCH (08:02)
[2016-11-28] MEDS: CLONIDINE HCL 0.1 MG TABLET PO SCH (08:02)
--- NOTE | 2016-11-28 09:40 | NUR ---
Discharge note; Patient is AOX4. All patient's belongings, valuables, prescriptions given to patient. Patient completed treatment without any adverse reactions. Patient denies pain, S/I and H/I. Patient left the hospital on 11/28/16 at 0940. Patient left the hospital in a stable condition. Met all needs.
== END 2016-11-28 09:40 | disposition other institution (70) | DRG 895 ==
LOC: SRC 09:25
PROVIDERS: ADMIT Internal Medicine; ATTEND Internal Medicine
PROC: HZ2ZZZZ Detoxification Services for Substance Abuse Treatment (ICD-10-PCS; principal; 2016-11-22)
PROC: HZ41ZZZ Group Counseling for Substance Abuse Treatment, Behavioral (ICD-10-PCS; 2016-11-23)
DX: F10.230 Alcohol dependence with withdrawal, uncomplicated (principal); E87.3 Alkalosis; F33.1 Major depressive disorder, recurrent, moderate; K70.10 Alcoholic hepatitis without ascites; F11.23 Opioid dependence with withdrawal; Y90.9 Presence of alcohol in blood, level not specified; Z81.3 Family history of other psychoactive substance abuse and dependence; G47.00 Insomnia, unspecified; F41.9 Anxiety disorder, unspecified; F50.9 Eating disorder, unspecified; Z88.0 Allergy status to penicillin; Z91.89 Other specified personal risk factors, not elsewhere classified; I15.9 Secondary hypertension, unspecified; F13.230 Sedative, hypnotic or anxiolytic dependence with withdrawal, uncomplicated; E86.0 Dehydration; E55.9 Vitamin D deficiency, unspecified; D72.823 Leukemoid reaction; F17.210 Nicotine dependence, cigarettes, uncomplicated; Z79.899 Other long term (current) drug therapy
CPT/HCPCS: 36415; 70030-TC; 80307; 82306; 83690; 83735; 84100; 84443; 85025; 86580; 86592; 86705; 86803; 87340; 87806; 93005; A4663; A9150; G6040-TC; J3411

== ENCOUNTER 2017-11-21 16:00 | Inpatient (IN) | payer OTHER ==
[~2017-11-21] VITALS: Ht 165.1 cm; Wt 54.4 kg
[~2017-11-21 16:00] MED LIST: CHOL10002 PO; CLON0.1T14 PO; CLON0.2T12 PO; DICY20TA28 PO; Gabapentin PO; HYDR-3895 PO; Ibuprofen PO; METH-33 PO; QUET100T PO; SERT100T PO; Sertraline Hcl PO
[2017-11-21] MEDS ORDERED: ONDANSETRON 4 MG/2 ML VIAL IM PRN (19:00)
[2017-11-21] MEDS ORDERED: MIRALAX 17 GM POWD.PACK PO PRN (19:00)
[2017-11-21] MEDS ORDERED: ONDANSETRON ODT 4 MG TAB.RAPDIS SL PRN (19:00)
[2017-11-21] MEDS ORDERED: LORAZEPAM 2 MG/1 ML VIAL IM PRN (19:00)
[2017-11-21] MEDS ORDERED: LORAZEPAM 1 MG TABLET PO PRN ×2 (19:00)
[2017-11-21] MEDS ORDERED: ACETAMINOPHEN 325 MG TABLET PO PRN (19:00)
[2017-11-21] MEDS ORDERED: diphenhydrAMINE 50 MG CAPSULE PO PRN (19:00)
[2017-11-21] MEDS ORDERED: BUPRENORPHINE HCL 2 MG TAB.SUBL SL PRN (19:00)
[2017-11-21] MEDS ORDERED: IBUPROFEN 600 MG TABLET PO PRN (19:00)
[2017-11-21] MEDS ORDERED: CLONIDINE HCL 0.1 MG TABLET PO PRN (19:00)
[2017-11-21] MEDS ORDERED: METHOCARBAMOL 750 MG TABLET PO PRN (19:00)
[2017-11-21] MEDS ORDERED: DICYCLOMINE HCL 20 MG TABLET PO PRN (19:00)
[2017-11-21] MEDS ORDERED: LOPERAMIDE HCL 2 MG CAPSULE PO PRN ×2 (19:00)
[2017-11-21] MEDS ORDERED: MAG HYDROX/AL HYDROX/SIMETH 30 ML LIQUID UDC PO PRN (19:00)
[2017-11-21] MEDS ORDERED: MAGNESIUM HYDROXIDE 30 ML LIQUID UDC PO PRN (19:00)
[2017-11-21] MEDS ORDERED: THIAMINE HCL 200 MG/2 ML VIAL IM ONE (19:00)
[2017-11-21 20:00] VITALS: BP 137/95
[2017-11-21 20:53] LABS: BASOPHILS # (AUTO) 0.1 K/uL (0.0-8.0); BASOPHILS % (AUTO) 0.6 % (0.0-2.0); EOSINOPHILS # (AUTO) 0.2 K/uL (0.0-0.7); LYMPHOCYTES # (AUTO) 2.5 K/uL (20.0-40.0); LYMPHOCYTES % (AUTO) 27.7 % (20.5-51.5); MEAN CORPUSCULAR HEMOGLOBIN 31.5 uug (23.8-33.4); MEAN CORPUSCULAR HGB CONC 35 g/dL (32.5-36.3); MEAN CORPUSCULAR VOLUME 90.8 fL (73.0-96.2); MONOCYTES # (AUTO) 0.6 K/uL (2.0-10.0); NEUTROPHILS # (AUTO) 5.7 K/uL (1.8-8.9); NEUTROPHILS % (AUTO) 62.7 % (38.5-71.5); PLATELET COUNT (AUTO) 327 K/uL (152-348)
[2017-11-21 20:55] LABS: *AMPHETAMINE, URINE POSITIVE (NEGATIVE); *BARBITURATE, URINE NEGATIVE (NEGATIVE); *CANNABINOID, URINE NEGATIVE (NEGATIVE); *COCCAINE, URINE POSITIVE (NEGATIVE); *OPIATE, URINE POSITIVE (NEGATIVE); *PHENCYCLIDINE SCREEN,URINE NEGATIVE (NEGATIVE)
[2017-11-21 21:16] LABS: ALANINE AMINOTRANSFERASE 36 U/L (16-63); ALKALINE PHOSPHATASE 139 U/L (50-136); AMYLASE 74 U/L (25-115); ASPARTATE AMINOTRANSFERASE 30 U/L (15-37); BILIRUBIN,TOTAL 0.5 mg/dL (0.2-1.0); CARBON DIOXIDE 35 mmol/L (21-32); CHLORIDE 99 mmol/L (98-107); GLUCOSE 117 mg/dL (74-106); MAGNESIUM 2.1 mg/dL (1.8-2.4); POTASSIUM 4.4 mmol/L (3.5-5.1); TOTAL PROTEIN, SERUM 8.4 g/dL (6.4-8.2); UREA NITROGEN, BLOOD 8 mg/dL (7-18)
[2017-11-21 21:17] LABS: ETHANOL < 3 MG/DL (0-0)
[2017-11-21] MEDS ORDERED: LORAZEPAM 1 MG TABLET PO SCH (22:00)
[2017-11-21] MEDS ORDERED: BUPR300T54 PO (23:20)
[2017-11-21] MEDS ORDERED: EMTR1TAB6 PO (23:20)
[2017-11-21] MEDS ORDERED: DULO20CA PO (23:20)
[2017-11-21] MEDS ORDERED: ARIP2TAB11 PO (23:20)
[2017-11-22] VITALS: BP 117/85
[2017-11-22 04:00] VITALS: BP 113/75
[2017-11-22] MEDS: BUPRENORPHINE HCL 2 MG TAB.SUBL SL SCH ×3 (08:58→21:48)
[2017-11-22] MEDS: MULTIVITAMINS,THERAPEUTIC TABLET PO SCH (08:58)
[2017-11-22] MEDS: FOLIC ACID 1 MG TABLET PO SCH (08:58)
[2017-11-22] MEDS: LORAZEPAM 1 MG TABLET PO SCH ×3 (08:58→21:47)
[2017-11-22] MEDS: THIAMINE HCL 100 MG TABLET PO SCH (08:58)
[2017-11-22 09:00] VITALS: BP 113/76
[2017-11-22] MEDS ORDERED: TUBERCULIN,PURIF.PROT.DERIV. 5 TU/0.1 ML TEST ID ONE (09:00)
[2017-11-22 12:00] VITALS: BP 132/90
[2017-11-22 16:00] VITALS: BP 120/86
[2017-11-22 20:00] VITALS: BP 135/100
[2017-11-22] MEDS ORDERED: DULOXETINE 20 MG CAPSULE.DR PO SCH (21:00)
[2017-11-22] MEDS: ARIPIPRAZOLE 2 MG TABLET PO SCH (21:47)
[2017-11-22] MEDS: DULOXETINE 60 MG CAPSULE.DR PO SCH (21:47)
[2017-11-23] VITALS: BP 116/70
[2017-11-23 04:00] VITALS: BP 144/88
[2017-11-23 08:00] VITALS: BP 109/76
[2017-11-23] MEDS: FOLIC ACID 1 MG TABLET PO SCH (08:47)
[2017-11-23] MEDS: THIAMINE HCL 100 MG TABLET PO SCH (08:47)
[2017-11-23] MEDS: MULTIVITAMINS,THERAPEUTIC TABLET PO SCH (08:47)
[2017-11-23] MEDS: LORAZEPAM 1 MG TABLET PO SCH ×2 (08:47→12:13)
[2017-11-23] MEDS ORDERED: BUPRENORPHINE HCL 2 MG TAB.SUBL SL SCH (09:00)
[2017-11-23] MEDS ORDERED: HYDROXYZINE PAMOATE 25 MG CAPSULE PO PRN (09:00)
[2017-11-23] MEDS ORDERED: NEOMY/BACITRAC/POLYMI OINT 28.35 GM TUBE TOP PRN (10:45)
[2017-11-23 12:00] VITALS: BP 122/86
[2017-11-23] MEDS: DICYCLOMINE HCL 20 MG TABLET PO SCH ×2 (14:20→20:28)
[2017-11-23] MEDS: BUPRENORPHINE HCL 2 MG TAB.SUBL SL SCH ×2 (14:20→20:29)
[2017-11-23 16:00] VITALS: BP 101/65
[2017-11-23] MEDS ORDERED: LORAZEPAM 1 MG TABLET PO SCH ×2 (17:00→21:00)
[2017-11-23 20:00] VITALS: BP 131/86
[2017-11-23] MEDS: ARIPIPRAZOLE 2 MG TABLET PO SCH (20:28)
[2017-11-23] MEDS: GABAPENTIN 300 MG CAPSULE PO SCH (20:28)
[2017-11-23] MEDS: DULOXETINE 60 MG CAPSULE.DR PO SCH (20:28)
[2017-11-23] MEDS: CLONIDINE HCL 0.1 MG TABLET PO SCH (20:35)
[2017-11-24 08:00] VITALS: BP 112/69
[2017-11-24 08:06] LABS: HEPATITIS B SURFACE AG Negative (Negative)
[2017-11-24] MEDS: MULTIVITAMINS,THERAPEUTIC TABLET PO SCH (08:19)
[2017-11-24] MEDS: THIAMINE HCL 100 MG TABLET PO SCH (08:19)
[2017-11-24] MEDS: FOLIC ACID 1 MG TABLET PO SCH (08:19)
[2017-11-24] MEDS: LORAZEPAM 1 MG TABLET PO SCH ×3 (08:19→20:34)
[2017-11-24] MEDS: BUPRENORPHINE HCL 2 MG TAB.SUBL SL SCH ×3 (08:19→20:36)
[2017-11-24] MEDS: DICYCLOMINE HCL 20 MG TABLET PO SCH ×3 (08:19→20:34)
[2017-11-24] MEDS: GABAPENTIN 300 MG CAPSULE PO SCH ×3 (08:19→20:34)
[2017-11-24] MEDS: CLONIDINE HCL 0.1 MG TABLET PO SCH ×3 (08:19→20:35)
[2017-11-24] MEDS ORDERED: KETOROLAC TROMETHAMINE 30 MG INJ IM PRN (11:00)
[2017-11-24 12:00] VITALS: BP 129/73
[2017-11-24 16:00] VITALS: BP 131/83
[2017-11-24 20:00] VITALS: BP 113/78
[2017-11-24] MEDS: BACLOFEN 10 MG TABLET PO SCH (20:34)
[2017-11-24] MEDS: DULOXETINE 60 MG CAPSULE.DR PO SCH (20:35)
[2017-11-24] MEDS: ARIPIPRAZOLE 2 MG TABLET PO SCH (20:36)
[2017-11-25 08:00] VITALS: BP 125/82
[2017-11-25] MEDS: MULTIVITAMINS,THERAPEUTIC TABLET PO SCH (09:00)
[2017-11-25] MEDS: FOLIC ACID 1 MG TABLET PO SCH (09:00)
[2017-11-25] MEDS: CLONIDINE HCL 0.1 MG TABLET PO SCH ×2 (09:01→16:33)
[2017-11-25] MEDS: BUPRENORPHINE HCL 2 MG TAB.SUBL SL SCH ×2 (09:01→20:12)
[2017-11-25] MEDS: GABAPENTIN 300 MG CAPSULE PO SCH ×3 (09:01→20:12)
[2017-11-25] MEDS: BACLOFEN 10 MG TABLET PO SCH ×3 (09:01→20:12)
[2017-11-25] MEDS: DICYCLOMINE HCL 20 MG TABLET PO SCH ×3 (09:01→20:11)
[2017-11-25] MEDS: THIAMINE HCL 100 MG TABLET PO SCH (09:01)
[2017-11-25] MEDS: LORAZEPAM 1 MG TABLET PO SCH ×2 (09:01→20:11)
[2017-11-25 12:00] VITALS: BP 128/89
[2017-11-25 16:00] VITALS: BP 124/87
[2017-11-25 20:08] VITALS: BP 119/83
[2017-11-25] MEDS: ARIPIPRAZOLE 5 MG TABLET PO SCH (20:11)
[2017-11-25] MEDS: DULOXETINE 60 MG CAPSULE.DR PO SCH (20:12)
[2017-11-25] MEDS: CLONIDINE HCL 0.2 MG TABLET PO SCH (20:12)
[2017-11-25] MEDS ORDERED: ARIPIPRAZOLE 2 MG TABLET PO SCH (21:00)
[2017-11-25] MEDS ORDERED: METH-406 PO (21:21)
[2017-11-25] MEDS ORDERED: CLON0.1T14 PO (21:21)
[2017-11-25] MEDS ORDERED: HYDR-3895 PO (21:21)
[2017-11-25] MEDS ORDERED: DULO60CA45 PO (21:21)
[2017-11-25] MEDS ORDERED: GABA-534 PO ×2 (21:21)
[2017-11-25] MEDS ORDERED: DIPH50CA37 PO (21:21)
[2017-11-25] MEDS ORDERED: ARIP5TAB10 PO (21:21)
[2017-11-25] MEDS ORDERED: IBUP-1955 PO (21:21)
[2017-11-25] MEDS ORDERED: DICY20TA28 PO (21:21)
[2017-11-26 00:36] VITALS: BP 106/62
[2017-11-26 04:00] VITALS: BP 103/63
[2017-11-26 08:01] VITALS: BP 100/70
[2017-11-26] MEDS: BACLOFEN 10 MG TABLET PO SCH (08:27)
[2017-11-26] MEDS: MULTIVITAMINS,THERAPEUTIC TABLET PO SCH (08:27)
[2017-11-26] MEDS: THIAMINE HCL 100 MG TABLET PO SCH (08:27)
[2017-11-26] MEDS: DICYCLOMINE HCL 20 MG TABLET PO SCH ×3 (08:27→21:24)
[2017-11-26] MEDS: FOLIC ACID 1 MG TABLET PO SCH (08:27)
[2017-11-26] MEDS: CLONIDINE HCL 0.1 MG TABLET PO SCH ×2 (08:27→14:04)
[2017-11-26] MEDS: GABAPENTIN 300 MG CAPSULE PO SCH ×3 (08:27→21:24)
[2017-11-26] MEDS ORDERED: BUPRENORPHINE HCL 2 MG TAB.SUBL SL SCH (09:00)
[2017-11-26] MEDS ORDERED: LORAZEPAM 1 MG TABLET PO SCH (09:00)
[2017-11-26 12:43] VITALS: BP 114/73
[2017-11-26] MEDS ORDERED: BENZOCAINE/MENTH/CETYLPYRD LOZENGE MM PRN (13:15)
[2017-11-26] MEDS: BACLOFEN 20 MG TABLET PO SCH ×2 (14:04→21:24)
[2017-11-26 17:10] VITALS: BP 105/70
[2017-11-26 20:30] VITALS: BP 111/79
[2017-11-26] MEDS: ARIPIPRAZOLE 5 MG TABLET PO SCH (21:24)
[2017-11-26] MEDS: CLONIDINE HCL 0.2 MG TABLET PO SCH (21:24)
[2017-11-26] MEDS: DULOXETINE 60 MG CAPSULE.DR PO SCH (21:24)
[2017-11-27 00:31] VITALS: BP 102/58
[2017-11-27 04:14] VITALS: BP 99/56
[2017-11-27 08:01] VITALS: BP 120/74
[2017-11-27] MEDS: DICYCLOMINE HCL 20 MG TABLET PO SCH (08:20)
[2017-11-27] MEDS: BACLOFEN 20 MG TABLET PO SCH (08:20)
[2017-11-27] MEDS: THIAMINE HCL 100 MG TABLET PO SCH (08:20)
[2017-11-27] MEDS: FOLIC ACID 1 MG TABLET PO SCH (08:20)
[2017-11-27] MEDS: GABAPENTIN 300 MG CAPSULE PO SCH (08:20)
[2017-11-27 08:21] VITALS: BP 120/74
[2017-11-27] MEDS: CLONIDINE HCL 0.1 MG TABLET PO SCH (08:21)
[2017-11-27] MEDS: MULTIVITAMINS,THERAPEUTIC TABLET PO SCH (08:21)
== END 2017-11-27 09:34 | disposition home or self-care (01) | DRG 895 ==
LOC: SRC 18:47
PROVIDERS: ADMIT Internal Medicine; ATTEND Internal Medicine
PROC: HZ2ZZZZ Detoxification Services for Substance Abuse Treatment (ICD-10-PCS; principal; 2017-11-21)
PROC: HZ41ZZZ Group Counseling for Substance Abuse Treatment, Behavioral (ICD-10-PCS; 2017-11-23)
DX: F10.230 Alcohol dependence with withdrawal, uncomplicated (principal); E87.3 Alkalosis; F14.20 Cocaine dependence, uncomplicated; I15.9 Secondary hypertension, unspecified; F50.9 Eating disorder, unspecified; F11.23 Opioid dependence with withdrawal; F15.23 Other stimulant dependence with withdrawal; F12.20 Cannabis dependence, uncomplicated; F39 Unspecified mood [affective] disorder; Y90.0 Blood alcohol level of less than 20 mg/100 ml; F17.210 Nicotine dependence, cigarettes, uncomplicated; E86.0 Dehydration; F41.0 Panic disorder [episodic paroxysmal anxiety]; Z81.3 Family history of other psychoactive substance abuse and dependence; F90.9 Attention-deficit hyperactivity disorder, unspecified type; Z59.1 Inadequate housing; R73.9 Hyperglycemia, unspecified; R74.8 Abnormal levels of other serum enzymes
CPT/HCPCS: 36415; 70030-TC; 80307; 80324; 80353; 80361; 83735; 85025; 86592; 86705; 86803; 87340; 87806; A4663; G0480; J3411; Q0162; Q0163